=== PATIENT | female | born 1950 | race Two or more races ===

== ENCOUNTER 2020-04-27 08:54 | Inpatient (IN) | payer OTHER, MEDICARE ==
[~2020-04-27] VITALS: Ht 154.9 cm; Wt 55.9 kg
--- NOTE | 2020-04-27 09:17 | NUR ---
CONTACT WITH PT, 69 YR OLD FEMALE HERE WITH C/O "MY DIABETES IS HIGH (184) AND I HAVE A COUGH. STARTED YESTERDAY" PT SITTING UP ON GURNEY, NO ACUTE DISTRESS NOTED.
--- NOTE | 2020-04-27 09:20 | NUR ---
GRAEME PRECIADO PA AT BEDSIDE TO EVAL PT
[2020-04-27] MEDS ORDERED: GLIP5TAB22 PO (09:27)
[2020-04-27] MEDS ORDERED: LOSA25TA25 PO (09:27)
[2020-04-27] MEDS ORDERED: ATOR10TA9 PO (09:27)
[2020-04-27] MEDS ORDERED: AMLO-211 PO (09:27)
[2020-04-27] MEDS ORDERED: METF-754 PO (09:27)
[2020-04-27] MEDS ORDERED: METF500T27 PO (09:28)
[2020-04-27] MEDS ORDERED: ACETAMINOPHEN 500 MG TABLET ONE (09:47)
[2020-04-27 09:52] LABS: PH, VENOUS 7.407 pH (7.320-7.420)
--- NOTE | 2020-04-27 09:55 | NUR ---
PT CONT WITHOUT ACUTE DISTRESS. PT MEDICATED ORDERED. UPDATED ON POC. NO NEEDS EXPRESSED AT THIS TIME.
[2020-04-27] MEDS ORDERED: ACETAMINOPHEN 500 MG TABLET PO ONE (10:00)
--- NOTE | 2020-04-27 10:03 | NUR ---
REPORT TO NYASIA JOHNSON
[2020-04-27 10:05] LABS: BASOPHILS % (AUTO) 0 % (0-1); EOSINOPHILS % (AUTO) 0 % (1-7); LYMPHOCYTES % (AUTO) 17 % (22-44); MEAN CORPUSCULAR HEMOGLOBIN 31.6 pg (27.0-34.8); MEAN CORPUSCULAR HGB CONC 33.6 g/dL (32.4-35.8); MEAN PLATELET VOLUME 7.6 fL (7.4-10.4); MONOCYTES % (AUTO) 8 % (2-9); NEUTROPHILS % (AUTO) 75 % (42-75); PLATELET COUNT 183 x10^3/uL (130-400); RED CELL DISTRIBUTION WIDTH 12.9 % (9.6-15.2)
[2020-04-27 10:07] LABS: ALANINE AMINOTRANSFERASE 29 U/L (12-78); ALBUMIN 3.2 g/dL (3.4-5.0); ANION GAP 6 mmol/L (5-15); CALCIUM 8.5 mg/dL (8.5-10.1); CHLORIDE 103 mmol/L (98-107); CREATININE 1.08 mg/dL (0.55-1.02); MD NO
[2020-04-27 10:09] LABS: ALKALINE PHOSPHATASE 61 U/L (45-117); BILIRUBIN,TOTAL 0.4 mg/dL (0.2-1.0); TOTAL PROTEIN 8.3 g/dL (6.4-8.2)
[2020-04-27 10:18] LABS: RAPID INFLUENZA A Negative (Negative); RAPID INFLUENZA B Negative (Negative)
[2020-04-27] MEDS ORDERED: CEFTRIAXONE PMX 1GM/50ML 50 ML ONE (10:27)
[2020-04-27] MEDS ORDERED: CEFTRIAXONE PMX 1GM/50ML 50 ML IV ONE (10:30)
--- NOTE | 2020-04-27 10:36 | NUR ---
SPOKE WITH IDRIS AT [facility]. PT WITH [facility]. IDRIS STATED [facility] IS ON TIER 2 TRANSFER DIVERSION AT THIS TIME AND CAN NOT ACCEPT PT TRANSFER. FACE SHEET FAXED OVER PER IDRIS REQUEST TO FILE FOR PT INSURANCE.
[2020-04-27 10:41] LABS: ACETONE, SERUM Negative (Negative)
[2020-04-27 10:48] LABS: C-REACTIVE PROTEIN, QUANT 9.1 mg/dL (0.02-0.49)
[2020-04-27 10:51] LABS: D-DIMER (DIC) 0.7 ug/mlFEU (0.00-0.52); PROTIME 9.9 Seconds (9.6-11.5)
[2020-04-27] MEDS ORDERED: SODIUM CHLORIDE FLUSH 10ML SYR IVF PRN (12:00)
--- NOTE | 2020-04-27 12:51 | NUR ---
REPORT CALLED TO GOKUL HODGSON RN
[2020-04-27] MEDS ORDERED: ATORVASTATIN 10 MG TABLET PO PRN (15:00)
[2020-04-27 15:10] VITALS: BP 134/77
[2020-04-27 15:11] VITALS: BP 134/77
[2020-04-27] MEDS: ENOXAPARIN 40 MG/0.4 ML SQ SCH (15:30)
[2020-04-27] MEDS ORDERED: PHARMACY MAY ADJ FOR RENAL FX MC PRN (15:30)
[2020-04-27] MEDS ORDERED: ACETAMINOPHEN 650 MG SUPP PR PRN (15:30)
[2020-04-27] MEDS: INSULIN LISPRO 100 UNITS/ML, PEN SQ-INSULIN SCH ×2 (16:00→21:13)
[2020-04-27] MEDS: CEFTRIAXONE PMX 1GM/50ML 50 ML IVPB SCH (16:22)
[2020-04-27] MEDS: DOXYCYCLINE 100 MG in DEXTROSE 5% 250 ML IV SCH (17:15)
[2020-04-27 19:37] VITALS: BP 120/74
[2020-04-27] MEDS: ASCORBIC ACID 500 MG TABLET PO SCH (19:58)
[2020-04-28 00:56] VITALS: BP 98/63
[2020-04-28] MEDS: DOXYCYCLINE 100 MG in DEXTROSE 5% 250 ML IV SCH ×2 (04:48→16:16)
[2020-04-28] MEDS: INSULIN LISPRO 100 UNITS/ML, PEN SQ-INSULIN SCH ×4 (07:00→20:22)
[2020-04-28] MEDS: ACETAMINOPHEN 325 MG TABLET PO PRN (08:45)
[2020-04-28] MEDS: ZINC SULFATE 220 MG CAPSULE PO SCH (08:45)
[2020-04-28] MEDS: ASCORBIC ACID 500 MG TABLET PO SCH ×2 (08:46→20:23)
[2020-04-28] MEDS: THIAMINE 100MG TABLET PO SCH (08:46)
[2020-04-28] MEDS: DEXAMETHASONE 4 MG/ML, 1ML IVPush SCH (08:46)
[2020-04-28] MEDS ORDERED: LOSARTAN 25MG TABLET PO SCH (09:00)
[2020-04-28] MEDS ORDERED: AMLODIPINE 10 MG TAB PO SCH (09:00)
[2020-04-28] MEDS ORDERED: CHOLECALCIFEROL (VITAMIN D3) 5000 IU CAP PO SCH (09:00)
[2020-04-28 13:05] VITALS: BP 100/58
[2020-04-28] MEDS: ENOXAPARIN 40 MG/0.4 ML SQ SCH (15:30)
[2020-04-28] MEDS: CEFTRIAXONE PMX 1GM/50ML 50 ML IVPB SCH (15:35)
[2020-04-28] MEDS: BENZONATATE 100 MG CAPSULE PO SCH ×2 (16:16→20:23)
[2020-04-28] MEDS: GUAIFENESIN/DM 200-20MG, 10ML UDC PO PRN (16:16)
[2020-04-28 20:06] VITALS: BP 110/62
[2020-04-28] MEDS: MELATONIN 5 MG TABLET PO SCH (20:23)
[2020-04-28] MEDS ORDERED: INSULIN GLARGINE 100 UNITS/ML, PEN SQ-INSULIN SCH (21:00)
[2020-04-29 00:14] VITALS: BP 93/60
[2020-04-29] MEDS: DOXYCYCLINE 100 MG in DEXTROSE 5% 250 ML IV SCH ×2 (04:46→17:31)
[2020-04-29] MEDS: BENZONATATE 100 MG CAPSULE PO SCH ×3 (08:26→21:10)
[2020-04-29] MEDS: ASCORBIC ACID 500 MG TABLET PO SCH ×2 (08:26→21:10)
[2020-04-29] MEDS: THIAMINE 100MG TABLET PO SCH (08:26)
[2020-04-29] MEDS: ZINC SULFATE 220 MG CAPSULE PO SCH (08:26)
[2020-04-29] MEDS: DEXAMETHASONE 4 MG/ML, 1ML IVPush SCH (08:26)
[2020-04-29] MEDS: INSULIN LISPRO 100 UNITS/ML, PEN SQ-INSULIN SCH ×4 (08:31→21:11)
[2020-04-29 08:47] VITALS: BP 106/65
[2020-04-29 13:50] VITALS: BP 119/68
[2020-04-29] MEDS: ENOXAPARIN 40 MG/0.4 ML SQ SCH (15:30)
[2020-04-29] MEDS: CEFTRIAXONE PMX 1GM/50ML 50 ML IVPB SCH (15:52)
[2020-04-29 19:26] VITALS: BP 109/64
[2020-04-29] MEDS ORDERED: INSULIN GLARGINE 100 UNITS/ML, PEN SQ-INSULIN SCH (21:00)
[2020-04-29] MEDS: MELATONIN 5 MG TABLET PO SCH (21:10)
[2020-04-30 01:28] VITALS: BP 108/67
[2020-04-30] MEDS: DOXYCYCLINE 100 MG in DEXTROSE 5% 250 ML IV SCH ×2 (05:03→20:58)
[2020-04-30] MEDS: INSULIN LISPRO 100 UNITS/ML, PEN SQ-INSULIN SCH ×5 (08:18→21:07)
[2020-04-30] MEDS: THIAMINE 100MG TABLET PO SCH (08:19)
[2020-04-30] MEDS: BENZONATATE 100 MG CAPSULE PO SCH ×3 (08:19→20:58)
[2020-04-30] MEDS: ASCORBIC ACID 500 MG TABLET PO SCH ×2 (08:19→20:59)
[2020-04-30] MEDS: CHOLECALCIFEROL 5,000u TAB PO SCH (08:19)
[2020-04-30] MEDS: ZINC SULFATE 220 MG CAPSULE PO SCH (08:19)
[2020-04-30] MEDS: DEXAMETHASONE 4 MG/ML, 1ML IVPush SCH (08:20)
[2020-04-30 08:26] VITALS: BP 123/70
[2020-04-30 13:26] VITALS: BP 108/68
[2020-04-30] MEDS: ENOXAPARIN 40 MG/0.4 ML SQ SCH (15:30)
[2020-04-30] MEDS: CEFTRIAXONE PMX 1GM/50ML 50 ML IVPB SCH (18:07)
[2020-04-30] MEDS: ACETAMINOPHEN 325 MG TABLET PO PRN (18:36)
[2020-04-30] MEDS: GUAIFENESIN/DM 200-20MG, 10ML UDC PO PRN (18:36)
[2020-04-30 19:54] VITALS: BP 117/70
[2020-04-30] MEDS: MELATONIN 5 MG TABLET PO SCH (20:59)
[2020-04-30] MEDS: INSULIN GLARGINE 100 UNITS/ML, PEN SQ-INSULIN SCH (21:06)
[2020-05-01 00:43] VITALS: BP 121/73
[2020-05-01 05:24] LABS: BASOPHILS % (AUTO) 0 % (0-1); EOSINOPHILS % (AUTO) 0 % (1-7); LYMPHOCYTES % (AUTO) 13 % (22-44); MEAN CORPUSCULAR HEMOGLOBIN 31.6 pg (27.0-34.8); MEAN CORPUSCULAR HGB CONC 34.1 g/dL (32.4-35.8); MEAN PLATELET VOLUME 7.4 fL (7.4-10.4); MONOCYTES % (AUTO) 7 % (2-9); NEUTROPHILS % (AUTO) 79 % (42-75); PLATELET COUNT 317 x10^3/uL (130-400); RED BLOOD COUNT 4.17 x10^6/uL (3.82-5.3); RED CELL DISTRIBUTION WIDTH 12.8 % (9.6-15.2)
[2020-05-01 05:32] LABS: MD NO
[2020-05-01 05:46] LABS: ANION GAP 5 mmol/L (5-15); CALCIUM 8.9 mg/dL (8.5-10.1); CHLORIDE 104 mmol/L (98-107); CREATININE 0.74 mg/dL (0.55-1.02)
[2020-05-01] MEDS: INSULIN LISPRO 100 UNITS/ML, PEN SQ-INSULIN SCH ×7 (07:00→21:13)
[2020-05-01 08:15] VITALS: BP 116/67
[2020-05-01] MEDS ORDERED: REMDESIVIR 200 MG in SODIUM CHLORIDE 0.9% 250 ML IVPB ONE (08:30)
[2020-05-01] MEDS: THIAMINE 100MG TABLET PO SCH (08:38)
[2020-05-01] MEDS: CHOLECALCIFEROL 5,000u TAB PO SCH (08:38)
[2020-05-01] MEDS: DEXAMETHASONE 4 MG/ML, 1ML IVPush SCH (08:39)
[2020-05-01] MEDS: ASCORBIC ACID 500 MG TABLET PO SCH ×2 (08:39→21:13)
[2020-05-01] MEDS: ZINC SULFATE 220 MG CAPSULE PO SCH (08:39)
[2020-05-01] MEDS: BENZONATATE 100 MG CAPSULE PO SCH ×3 (08:39→21:13)
[2020-05-01] MEDS: DOXYCYCLINE 100 MG in DEXTROSE 5% 250 ML IV SCH ×2 (09:11→21:12)
[2020-05-01] MEDS ORDERED: FUROSEMIDE 40 MG/4 ML IV ONE (11:30)
[2020-05-01 11:59] VITALS: BP 129/71
[2020-05-01 14:02] VITALS: BP 119/69
[2020-05-01] MEDS: ENOXAPARIN 40 MG/0.4 ML SQ SCH (15:30)
[2020-05-01] MEDS: CEFTRIAXONE PMX 1GM/50ML 50 ML IVPB SCH (16:05)
[2020-05-01 18:36] VITALS: BP 122/69
[2020-05-01] MEDS: MELATONIN 5 MG TABLET PO SCH (21:13)
[2020-05-01] MEDS: INSULIN GLARGINE 100 UNITS/ML, PEN SQ-INSULIN SCH (21:14)
[2020-05-02 00:43] VITALS: BP 128/74
[2020-05-02 06:22] LABS: INTERNATIONAL NORMALIZED RATIO 0.99 (0.93-1.1); PROTHROMBIN TIME 10.5 Seconds (9.6-11.5)
[2020-05-02 06:32] LABS: CHLORIDE 98 mmol/L (98-107)
[2020-05-02 06:39] LABS: ALANINE AMINOTRANSFERASE 63 U/L (12-78); ALBUMIN 2.4 g/dL (3.4-5.0); ALKALINE PHOSPHATASE 61 U/L (45-117); ANION GAP 7 mmol/L (5-15); BILIRUBIN,TOTAL 0.6 mg/dL (0.2-1.0); CALCIUM 8.4 mg/dL (8.5-10.1); CREATININE 0.66 mg/dL (0.55-1.02); TOTAL PROTEIN 7.3 g/dL (6.4-8.2)
[2020-05-02] MEDS: INSULIN LISPRO 100 UNITS/ML, PEN SQ-INSULIN SCH ×7 (07:00→21:04)
[2020-05-02] MEDS: BENZONATATE 100 MG CAPSULE PO SCH ×3 (08:25→20:51)
[2020-05-02] MEDS: THIAMINE 100MG TABLET PO SCH (08:25)
[2020-05-02] MEDS: ZINC SULFATE 220 MG CAPSULE PO SCH (08:25)
[2020-05-02] MEDS: ASCORBIC ACID 500 MG TABLET PO SCH ×2 (08:25→20:51)
[2020-05-02] MEDS: CHOLECALCIFEROL 5,000u TAB PO SCH (08:25)
[2020-05-02] MEDS: DEXAMETHASONE 4 MG/ML, 1ML IVPush SCH (08:27)
[2020-05-02] MEDS: DOXYCYCLINE 100 MG in DEXTROSE 5% 250 ML IV SCH ×2 (08:49→20:51)
[2020-05-02 09:12] VITALS: BP 100/62
[2020-05-02] MEDS: REMDESIVIR 100 MG in SODIUM CHLORIDE 0.9% 250 ML IVPB SCH (12:03)
[2020-05-02 14:19] VITALS: BP 136/74
[2020-05-02] MEDS: CEFTRIAXONE PMX 1GM/50ML 50 ML IVPB SCH (15:40)
[2020-05-02] MEDS: ENOXAPARIN 40 MG/0.4 ML SQ SCH (16:46)
[2020-05-02 18:40] VITALS: BP 124/2
[2020-05-02] MEDS: MELATONIN 5 MG TABLET PO SCH (20:51)
[2020-05-02] MEDS: INSULIN GLARGINE 100 UNITS/ML, PEN SQ-INSULIN SCH (21:03)
[2020-05-03 00:54] VITALS: BP 106/58
[2020-05-03 06:43] LABS: CALCIUM 8.5 mg/dL (8.5-10.1); CHLORIDE 103 mmol/L (98-107)
[2020-05-03 06:49] LABS: ALANINE AMINOTRANSFERASE 51 U/L (12-78); ALBUMIN 2.3 g/dL (3.4-5.0); ALKALINE PHOSPHATASE 61 U/L (45-117); ANION GAP 8 mmol/L (5-15); BILIRUBIN,TOTAL 0.5 mg/dL (0.2-1.0); TOTAL PROTEIN 6.9 g/dL (6.4-8.2)
[2020-05-03] MEDS: INSULIN LISPRO 100 UNITS/ML, PEN SQ-INSULIN SCH ×8 (07:00→20:43)
[2020-05-03 07:55] VITALS: BP 129/76
[2020-05-03] MEDS: THIAMINE 100MG TABLET PO SCH (09:00)
[2020-05-03] MEDS: DOXYCYCLINE 100 MG in DEXTROSE 5% 250 ML IV SCH ×2 (09:08→20:53)
[2020-05-03] MEDS: ASCORBIC ACID 500 MG TABLET PO SCH ×2 (09:08→20:41)
[2020-05-03] MEDS: BENZONATATE 100 MG CAPSULE PO SCH ×3 (09:09→20:41)
[2020-05-03] MEDS: DEXAMETHASONE 4 MG/ML, 1ML IVPush SCH (09:09)
[2020-05-03] MEDS: ZINC SULFATE 220 MG CAPSULE PO SCH (09:09)
[2020-05-03] MEDS: CHOLECALCIFEROL 5,000u TAB PO SCH (11:37)
[2020-05-03] MEDS: REMDESIVIR 100 MG in SODIUM CHLORIDE 0.9% 250 ML IVPB SCH (13:42)
[2020-05-03 13:52] VITALS: BP 128/69
[2020-05-03] MEDS: ENOXAPARIN 40 MG/0.4 ML SQ SCH (15:58)
[2020-05-03] MEDS: CEFTRIAXONE PMX 1GM/50ML 50 ML IVPB SCH (15:58)
[2020-05-03 19:30] VITALS: BP 133/76
[2020-05-03] MEDS: MELATONIN 5 MG TABLET PO SCH (20:41)
[2020-05-03] MEDS ORDERED: INSULIN GLARGINE 100 UNITS/ML, PEN SQ-INSULIN SCH (21:00)
[2020-05-04 00:23] VITALS: BP 114/68
[2020-05-04 06:26] LABS: BASOPHILS % (AUTO) 0 % (0-1); EOSINOPHILS % (AUTO) 1 % (1-7); LYMPHOCYTES % (AUTO) 11 % (22-44); MEAN CORPUSCULAR HEMOGLOBIN 32.3 pg (27.0-34.8); MEAN PLATELET VOLUME 7.5 fL (7.4-10.4); MONOCYTES % (AUTO) 7 % (2-9); NEUTROPHILS % (AUTO) 81 % (42-75); PLATELET COUNT 418 x10^3/uL (130-400); RED BLOOD COUNT 4.23 x10^6/uL (3.82-5.3)
[2020-05-04 06:36] LABS: CHLORIDE 103 mmol/L (98-107)
[2020-05-04 06:37] LABS: MD NO
[2020-05-04 06:44] LABS: ALANINE AMINOTRANSFERASE 43 U/L (12-78); ALBUMIN 2.4 g/dL (3.4-5.0); ALKALINE PHOSPHATASE 61 U/L (45-117); ANION GAP 9 mmol/L (5-15); BILIRUBIN,TOTAL 0.8 mg/dL (0.2-1.0); CALCIUM 8.8 mg/dL (8.5-10.1); CREATININE 0.65 mg/dL (0.55-1.02); TOTAL PROTEIN 7.3 g/dL (6.4-8.2)
[2020-05-04] MEDS: INSULIN LISPRO 100 UNITS/ML, PEN SQ-INSULIN SCH ×7 (08:07→21:08)
[2020-05-04 08:27] VITALS: BP 123/72
[2020-05-04] MEDS: ZINC SULFATE 220 MG CAPSULE PO SCH (09:18)
[2020-05-04] MEDS: DOXYCYCLINE 100 MG in DEXTROSE 5% 250 ML IV SCH (09:18)
[2020-05-04] MEDS: CHOLECALCIFEROL 5,000u TAB PO SCH (09:18)
[2020-05-04] MEDS: THIAMINE 100MG TABLET PO SCH (09:18)
[2020-05-04] MEDS: BENZONATATE 100 MG CAPSULE PO SCH ×3 (09:18→21:07)
[2020-05-04] MEDS: ASCORBIC ACID 500 MG TABLET PO SCH ×2 (09:18→21:07)
[2020-05-04] MEDS: DEXAMETHASONE 4 MG/ML, 1ML IVPush SCH (09:19)
[2020-05-04] MEDS: REMDESIVIR 100 MG in SODIUM CHLORIDE 0.9% 250 ML IVPB SCH (13:26)
[2020-05-04 13:38] VITALS: BP 123/66
[2020-05-04] MEDS: CEFTRIAXONE PMX 2GM/50ML 50 ML IVPB SCH (16:31)
[2020-05-04] MEDS: ENOXAPARIN 40 MG/0.4 ML SQ SCH (16:32)
[2020-05-04 20:41] VITALS: BP 134/73
[2020-05-04] MEDS ORDERED: INSULIN GLARGINE 100 UNITS/ML, PEN SQ-INSULIN SCH (21:00)
[2020-05-04] MEDS: DOXYCYCLINE 100MG TABLET PO SCH (21:06)
[2020-05-04] MEDS: MELATONIN 5 MG TABLET PO SCH (21:07)
[2020-05-04] MEDS: INSULIN GLARGINE 100 UNITS/ML, PEN SQ-INSULIN SCH (21:09)
[2020-05-05 00:48] VITALS: BP 121/69
[2020-05-05 06:23] LABS: ALBUMIN 2.4 g/dL (3.4-5.0); ANION GAP 7 mmol/L (5-15); CHLORIDE 102 mmol/L (98-107)
[2020-05-05 06:29] LABS: ALANINE AMINOTRANSFERASE 40 U/L (12-78); ALKALINE PHOSPHATASE 65 U/L (45-117); BILIRUBIN,TOTAL 0.8 mg/dL (0.2-1.0); CREATININE 0.64 mg/dL (0.55-1.02)
[2020-05-05 06:35] LABS: C-REACTIVE PROTEIN, QUANT 2.1 mg/dL (0.02-0.49)
[2020-05-05] MEDS: INSULIN LISPRO 100 UNITS/ML, PEN SQ-INSULIN SCH ×6 (07:00→16:36)
[2020-05-05 07:53] VITALS: BP 132/73
[2020-05-05] MEDS: DOXYCYCLINE 100MG TABLET PO SCH (08:00)
[2020-05-05] MEDS: BENZONATATE 100 MG CAPSULE PO SCH ×2 (08:25→15:31)
[2020-05-05] MEDS: CHOLECALCIFEROL 5,000u TAB PO SCH (08:25)
[2020-05-05] MEDS: DEXAMETHASONE 4 MG/ML, 1ML IVPush SCH (08:25)
[2020-05-05] MEDS: ASCORBIC ACID 500 MG TABLET PO SCH (08:25)
[2020-05-05] MEDS: ZINC SULFATE 220 MG CAPSULE PO SCH (08:26)
[2020-05-05] MEDS: THIAMINE 100MG TABLET PO SCH (08:26)
[2020-05-05] MEDS: INSULIN GLARGINE 100 UNITS/ML, PEN SQ-INSULIN SCH (08:42)
[2020-05-05] MEDS: REMDESIVIR 100 MG in SODIUM CHLORIDE 0.9% 250 ML IVPB SCH (11:36)
[2020-05-05 12:37] VITALS: BP 127/73
[2020-05-05] MEDS: CEFTRIAXONE PMX 2GM/50ML 50 ML IVPB SCH (15:31)
[2020-05-05] MEDS: ENOXAPARIN 40 MG/0.4 ML SQ SCH (15:31)
[2020-05-05] MEDS ORDERED: ASCO500T9 PO (16:27)
[2020-05-05] MEDS ORDERED: THIA100T67 PO (16:27)
[2020-05-05] MEDS ORDERED: ZINC220C7 PO (16:27)
== END 2020-05-05 18:14 | disposition home or self-care (01) | DRG 177 ==
LOC: ED 10:13 → EDIP 11:48 → 3N 13:42
PROVIDERS: ADMIT Internal Medicine; ATTEND Family Medicine
PROC: XW033E5 Introduction of Remdesivir Anti-infective into Peripheral Vein, Percutaneous Approach, New Technology Group 5 (ICD-10-PCS; principal; 2020-05-01)
DX: U07.1 COVID-19 (principal); J12.89 Other viral pneumonia; J96.01 Acute respiratory failure with hypoxia; E87.1 Hypo-osmolality and hyponatremia; E78.5 Hyperlipidemia, unspecified; I10 Essential (primary) hypertension; E11.65 Type 2 diabetes mellitus with hyperglycemia; T38.0X5A Adverse effect of glucocorticoids and synthetic analogues, initial encounter
CPT/HCPCS: 36415; 71045; 80048; 80053; 82010; 82728; 82803; 82947; 82962; 83605; 83615; 84145; 85025; 85049; 85379; 85384; 85610; 85730; 86140; 87040; 87400; 87635; 93005; 96365; 99285; G0378; J0696; J1100; J1650; J1940; J7060; J1815; J7050; U0003